=== PATIENT | female | born 1985 | race American Indian/Alaskan Native ===

== ENCOUNTER 2021-05-24 19:23 | Outpatient (CLI) | payer OTHER, MEDICAID ==
[2021-05-24] MEDS ORDERED: LACTATED RINGERS 500 ML IV ONE (19:46)
[2021-05-24 19:56] VITALS: BP 110/74
[2021-05-24 20:40] LABS: Bilirubin,Urine NEG (Negative); Blood,Urine NEG (Negative); Color,Urine Yellow (Yellow); Mucus,Urine 3+ /HPF; Protein,Urine <15 mg/dL mg/dL (Negative); Urobilinogen,Urine < 2.0 mg/dL (<2.0)
== END 2021-05-24 21:04 | disposition home or self-care (01) ==
LOC: TRG 19:23
PROVIDERS: ATTEND Obstetrics & Gynecology
DX: O26.892 Other specified pregnancy related conditions, second trimester (principal); Z3A.24 24 weeks gestation of pregnancy
CPT/HCPCS: 81001

== ENCOUNTER 2021-09-06 11:38 | Inpatient (IN) | payer OTHER, MEDICAID ==
[2021-09-06] MEDS ORDERED: fentaNYL 100 MCG/2 ML INJ IV PRN (12:26)
[2021-09-06] MEDS ORDERED: miSOPROStol 200 MCG TAB PR PRN (12:26)
[2021-09-06] MEDS ORDERED: MINERAL OIL 30 ML ORAL LIQD PO PRN ×2 (12:26→17:07)
[2021-09-06] MEDS ORDERED: TERBUTALINE 1 MG/1 ML INJ SUB-Q PRN (12:26)
[2021-09-06] MEDS ORDERED: OXYTOCIN 10 UNIT/1 ML INJ IM PRN (12:26)
[2021-09-06] MEDS ORDERED: NalbUPHINE 10 MG/1 ML INJ IV PRN (12:26)
[2021-09-06] MEDS ORDERED: BUTORPHANOL 2 MG/1 ML INJ IV PRN (12:26)
[2021-09-06] MEDS ORDERED: ONDANSETRON 4 MG/2 ML INJ IV PRN (12:26)
[2021-09-06] MEDS ORDERED: ePHEDrine SULFATE 50 MG/1 ML INJ IV PRN (12:26)
[2021-09-06] MEDS ORDERED: LOPERAMIDE 2 MG CAP PO PRN (12:26)
[2021-09-06] MEDS ORDERED: METHYLERGONOVINE MALEATE 0.2 MG/ML VIAL IM PRN (12:26)
[2021-09-06] MEDS ORDERED: LIDOCAINE (2%) 20 MG/1 ML VIAL 20 ML MDV INFILTRATI ONE (12:26)
[2021-09-06] MEDS ORDERED: CARBOPROST TROMETHAMINE 250 MCG/1 ML INJ IM PRN (12:26)
[2021-09-06] MEDS ORDERED: OXYTOCIN DRIP 30 UNITS/500 ML BAG IV SCH ×2 (13:00)
[2021-09-06] MEDS ORDERED: DINOPROSTONE 10 MG VAG SUPP VG ONE (14:13)
--- NOTE | 2021-09-06 14:32 | History and Physical Report ---
History of Present Illness Date of examination: 09/06/21 Date of admission: 09/06/2021 Chief complaint: IOL secondary to IVF History of present illness: 35 yo, G0 @ 39 wks, initiated care with [facility] business planner at 22.4 wks gestation as a transfer pt. has been complicated by AMA (co-managed by [facility] specialist), uterine fibroid, migraines, HSV2, polyhydramnios, asthma and hx of hysteroscopy with Myosure resection of two layers. [facility] secondary to [facility]P . Reports + FM. Denies any VB or LOF. Labs: A+, antibody negative; rubella immune; VDRL negative; HBsAg negative; HIV negative; Plts 253; Hep C negative;GC/Chlamydia/Trichomonas negative; 1 hr gtt 103; GBS negative. 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 denies: smoking, alcohol abuse, prescription drug abuse, IV drug use - Obstetrical History Expected Date of Delivery: 09/13/21 Actual Gestation: 39 Week(s) 6 Day(s) : 1 Para: 0 Hx # Term Pregnancies: 0 Number of Pregnancies: 0 Spontaneous Abortions: 0 Induced : 0 Number of Living Children: 0 Medications and Allergies Allergies Allergy/AdvReac Type Severity Reaction Status Date / Time codeine Allergy Itching Verified 09/06/21 12:37 Home Medications Medication Instructions Recorded Confirmed Last Taken Type Ibuprofen [Motrin] 800 mg PO Q8HR PRN #30 tablet 09/10/21 Unknown Rx oxyCODONE /ACETAMINOPHEN [Percocet 1 tab PO Q6HR PRN #30 tablet 09/10/21 Unknown Rx 5/325] Active Meds: Active Medications Butorphanol Tartrate (Butorphanol 2 Mg/1 Ml Inj) 2 mg IV Q2H PRN PRN Reason: Pain , Severe (7-10) Carboprost Tromethamine (Carboprost Tromethamine 250 Mcg/1 Ml Inj) 250 mcg IM ONCE PRN PRN Reason: Uterine Bleeding Ephedrine Sulfate (Ephedrine Sulfate 50 Mg/1 Ml Inj) 10 mg IV Q2M PRN PRN Reason: Hypotension Fentanyl (Fentanyl 100 Mcg/2 Ml Inj) 100 mcg IV Q2H PRN PRN Reason: Pain,Severe (7-10) LABOR PAIN Oxytocin/Sodium Chloride (Pitocin/Ns 30 Unit/500ml) 30 units in 500 mls @ 2 mls/hr IV TITR JOJO; Protocol Lactated Ringer's (Lactated Ringers) 1,000 mls @ 125 mls/hr IV DIRECT JOJO Oxytocin/Sodium Chloride (Pitocin/Ns 30 Unit/500ml) 30 units in 500 mls @ 40 mls/hr IV TITR JOJO; Protocol Loperamide HCl (Loperamide 2 Mg Cap) 2 mg PO ONCE PRN PRN Reason: give with Hemabate Methylergonovine Maleate (Methylergonovine Maleate 0.2 Mg/Ml Vial) 0.2 mg IM ONCE PRN PRN Reason: Uterine Bleeding Mineral Oil (Mineral Oil 30 Ml Oral Liqd) 30 ml PO QHS PRN PRN Reason: Constipation Misoprostol (Misoprostol 200 Mcg Tab) 800 mcg AR ONCE PRN PRN Reason: Uterine Bleeding Nalbuphine HCl (Nalbuphine 10 Mg/1 Ml Inj) 10 mg IV Q2H PRN PRN Reason: Pain, Moderate (4-6) Ondansetron HCl (Ondansetron 4 Mg/2 Ml Inj) 4 mg IV Q8H PRN PRN Reason: Nausea And Vomiting Oxytocin (Oxytocin 10 Unit/1 Ml Inj) 10 unit IM ONCE PRN PRN Reason: Uterine Bleeding Terbutaline Sulfate (Terbutaline 1 Mg/1 Ml Inj) 0.25 mg SUB-Q ONCE PRN PRN Reason: Hyperstimulation/Hypertonicity - Vital Signs Vital signs: Vital Signs Pulse Pulse Ox 106 H 97 09/06/21 11:59 09/06/21 11:59 Temp Pulse Resp BP Pulse Ox 98.4 F 113 H 20 119/66 100 09/06/21 12:13 09/06/21 14:26 09/06/21 12:13 09/06/21 12:13 09/06/21 14:26 - Physical Exam Breasts: Positive: normal Cardiovascular: Regular rate Lungs: Positive: Normal air movement Abdomen: Positive: other (gravid) Uterus: Positive: enlarged (S>D) - Obstetrical FHR: category 1 Uterine Contraction Monitor Mode: External Cervical Dilatation: 1 (per RN) Cervical Effacement Percentage: 30 station: -3 Uterine Contraction Pattern: Absent Uterine Tone Measurement Phase: Resting Results Result Diagrams: 09/08/21 22:54 All other labs normal. Assessment and Plan - Patient Problems (1) resulting from in vitro fertilization Status: Acute Qualifiers: Trimester: third trimester Qualified Code(s): O09.813 - Supervision of resulting from assisted reproductive technology, third trimester Plan to address problem: IOL via cervidil as tolerated Pain meds as desired per orders Monitor maternal/ wellbeing closely (2) Advanced maternal age (AMA) in Status: Acute (3) Polyhydramnios affecting in third trimester Status: Acute (4) HSV-2 seropositive Status: Acute (5) Uterine fibroid during , antepartum Status: Acute
[2021-09-06 14:34] LABS: Hematocrit 36.5 % (30.3-42.9); Hemoglobin 11.9 gm/dl (10.1-14.3); Mean Corpuscular HGB Conc 33 % (30-34); Mean Corpuscular Volume 92 fl (79-97); Platelet Count 192 K/mm3 (140-440); Red Blood Count 3.95 M/mm3 (3.65-5.03); Red Cell Distribution Width 14.8 % (13.2-15.2)
[2021-09-06] MEDS: LACTATED RINGERS 1,000 ML IV SCH (15:59)
[2021-09-06] MEDS ORDERED: ALUM-MAG HYDROXIDE-SIMETHICONE 200-200-20MG/5ML ORAL LIQD 30 ML PO PRN (23:51)
--- NOTE | 2021-09-07 08:56 | Progress Note ---
Assessment and Plan A: IUP at 39w1d Asthma AMA Genital Herpes Fibroid Uterus IVF Migraines Polyhydramnios Genital Herpes without lesion or prodrome P: Continue routine intrapartum care Continue cervical ripening Subjective - Subjective Date of service: 09/07/21 Principal diagnosis: IUP at 39 wks, AMA, IVF pregancy Interval history: Pt uncomfortable with contractions. Otherwise no complaints. Patient reports: new complaints, movement normal, contractions, no loss of fluid, no vaginal bleeding Objective - Vital Signs Vital Signs: Vital Signs - 12hr 09/06/21 09/06/21 09/06/21 20:57 21:02 21:07 Temperature Pulse Rate 102 H 99 H 107 H Respiratory Rate Blood Pressure O2 Sat by Pulse 100 100 99 Oximetry O2 Sat by Pulse Oximetry [ Anterior Bilateral Throughout] 09/06/21 09/06/21 09/06/21 21:16 22:39 22:44 Temperature Pulse Rate 103 H 89 107 H Respiratory Rate Blood Pressure O2 Sat by Pulse 99 99 99 Oximetry O2 Sat by Pulse Oximetry [ Anterior Bilateral Throughout] 09/06/21 09/06/21 09/06/21 22:49 22:54 22:59 Temperature Pulse Rate 96 H 81 85 Respiratory Rate Blood Pressure O2 Sat by Pulse 98 98 98 Oximetry O2 Sat by Pulse Oximetry [ Anterior Bilateral Throughout] 09/06/21 09/06/21 09/06/21 23:04 23:09 23:14 Temperature Pulse Rate 105 H 87 90 Respiratory Rate Blood Pressure O2 Sat by Pulse 97 97 97 Oximetry O2 Sat by Pulse Oximetry [ Anterior Bilateral Throughout] 09/06/21 09/06/21 09/06/21 23:19 23:24 23:29 Temperature Pulse Rate 100 H 93 H 84 Respiratory Rate Blood Pressure O2 Sat by Pulse 96 97 96 Oximetry O2 Sat by Pulse Oximetry [ Anterior Bilateral Throughout] 09/06/21 09/06/21 09/06/21 23:34 23:39 23:44 Temperature Pulse Rate 87 89 83 Respiratory Rate Blood Pressure O2 Sat by Pulse 98 97 97 Oximetry O2 Sat by Pulse Oximetry [ Anterior Bilateral Throughout] 09/06/21 09/06/21 09/06/21 23:49 23:54 23:59 Temperature Pulse Rate 110 H 87 105 H Respiratory Rate Blood Pressure O2 Sat by Pulse 97 97 97 Oximetry O2 Sat by Pulse Oximetry [ Anterior Bilateral Throughout] 09/07/21 09/07/21 09/07/21 00:04 00:09 00:14 Temperature Pulse Rate 91 H 91 H 84 Respiratory Rate Blood Pressure O2 Sat by Pulse 98 97 99 Oximetry O2 Sat by Pulse Oximetry [ Anterior Bilateral Throughout] 09/07/21 09/07/21 09/07/21 00:19 00:24 00:29 Temperature Pulse Rate 88 87 87 Respiratory Rate Blood Pressure O2 Sat by Pulse 98 97 97 Oximetry O2 Sat by Pulse Oximetry [ Anterior Bilateral Throughout] 09/07/21 09/07/21 09/07/21 00:34 00:39 00:44 Temperature Pulse Rate 86 85 86 Respiratory Rate Blood Pressure O2 Sat by Pulse 97 97 97 Oximetry O2 Sat by Pulse Oximetry [ Anterior Bilateral Throughout] 09/07/21 09/07/21 09/07/21 00:49 00:54 00:59 Temperature Pulse Rate 88 85 95 H Respiratory Rate Blood Pressure O2 Sat by Pulse 97 97 95 Oximetry O2 Sat by Pulse Oximetry [ Anterior Bilateral Throughout] 09/07/21 09/07/21 09/07/21 01:04 01:09 01:14 Temperature Pulse Rate 91 H 86 88 Respiratory Rate Blood Pressure O2 Sat by Pulse 98 99 97 Oximetry O2 Sat by Pulse Oximetry [ Anterior Bilateral Throughout] 09/07/21 09/07/21 09/07/21 01:19 01:24 01:29 Temperature Pulse Rate 85 90 95 H Respiratory Rate Blood Pressure O2 Sat by Pulse 97 97 98 Oximetry O2 Sat by Pulse Oximetry [ Anterior Bilateral Throughout] 09/07/21 09/07/21 09/07/21 01:34 01:39 01:44 Temperature Pulse Rate 82 89 89 Respiratory Rate Blood Pressure O2 Sat by Pulse 98 98 97 Oximetry O2 Sat by Pulse Oximetry [ Anterior Bilateral Throughout] 09/07/21 09/07/21 09/07/21 01:49 01:54 01:59 Temperature Pulse Rate 86 91 H 89 Respiratory Rate Blood Pressure O2 Sat by Pulse 97 96 96 Oximetry O2 Sat by Pulse Oximetry [ Anterior Bilateral Throughout] 09/07/21 09/07/21 09/07/21 02:04 02:09 02:14 Temperature Pulse Rate 90 86 94 H Respiratory Rate Blood Pressure O2 Sat by Pulse 95 97 97 Oximetry O2 Sat by Pulse Oximetry [ Anterior Bilateral Throughout] 09/07/21 09/07/21 09/07/21 02:19 02:24 02:35 Temperature Pulse Rate 89 89 98 H Respiratory Rate Blood Pressure O2 Sat by Pulse 97 97 94 Oximetry O2 Sat by Pulse Oximetry [ Anterior Bilateral Throughout] 09/07/21 09/07/21 09/07/21 02:40 02:45 02:50 Temperature Pulse Rate 91 H 102 H 88 Respiratory Rate Blood Pressure O2 Sat by Pulse 99 99 98 Oximetry O2 Sat by Pulse Oximetry [ Anterior Bilateral Throughout] 09/07/21 09/07/21 09/07/21 02:55 03:00 03:05 Temperature Pulse Rate 90 92 H 87 Respiratory Rate Blood Pressure O2 Sat by Pulse 97 99 98 Oximetry O2 Sat by Pulse Oximetry [ Anterior Bilateral Throughout] 09/07/21 09/07/21 09/07/21 03:10 03:15 03:20 Temperature Pulse Rate 93 H 102 H 97 H Respiratory Rate Blood Pressure O2 Sat by Pulse 98 99 99 Oximetry O2 Sat by Pulse Oximetry [ Anterior Bilateral Throughout] 09/07/21 09/07/21 09/07/21 03:25 03:30 03:35 Temperature Pulse Rate 92 H 89 82 Respiratory Rate Blood Pressure O2 Sat by Pulse 99 99 98 Oximetry O2 Sat by Pulse Oximetry [ Anterior Bilateral Throughout] 09/07/21 09/07/21 09/07/21 03:40 03:45 03:50 Temperature Pulse Rate 95 H 94 H 100 H Respiratory Rate Blood Pressure O2 Sat by Pulse 99 99 98 Oximetry O2 Sat by Pulse Oximetry [ Anterior Bilateral Throughout] 09/07/21 09/07/21 09/07/21 03:55 04:00 07:13 Temperature Pulse Rate 104 H 99 H 62 Respiratory Rate Blood Pressure O2 Sat by Pulse 97 99 87 Oximetry O2 Sat by Pulse Oximetry [ Anterior Bilateral Throughout] 09/07/21 09/07/21 09/07/21 07:16 07:18 07:23 Temperature Pulse Rate 86 94 H 93 H Respiratory Rate Blood Pressure 111/78 O2 Sat by Pulse 100 99 Oximetry O2 Sat by Pulse Oximetry [ Anterior Bilateral Throughout] 09/07/21 09/07/21 09/07/21 07:28 07:33 07:38 Temperature 97.8 F Pulse Rate 88 88 95 H Respiratory 20 Rate Blood Pressure O2 Sat by Pulse 97 97 98 Oximetry O2 Sat by Pulse 98 Oximetry [ Anterior Bilateral Throughout] 09/07/21 09/07/21 09/07/21 07:43 07:44 07:48 Temperature Pulse Rate 83 90 78 Respiratory Rate Blood Pressure 101/57 O2 Sat by Pulse 99 97 Oximetry O2 Sat by Pulse Oximetry [ Anterior Bilateral Throughout] 09/07/21 09/07/21 09/07/21 07:53 07:58 08:00 Temperature Pulse Rate 105 H 80 85 Respiratory Rate Blood Pressure 103/64 O2 Sat by Pulse 99 100 Oximetry O2 Sat by Pulse Oximetry [ Anterior Bilateral Throughout] 09/07/21 09/07/21 09/07/21 08:03 08:08 08:13 Temperature Pulse Rate 89 77 80 Respiratory Rate Blood Pressure O2 Sat by Pulse 98 98 98 Oximetry O2 Sat by Pulse Oximetry [ Anterior Bilateral Throughout] 09/07/21 09/07/21 09/07/21 08:14 08:18 08:23 Temperature Pulse Rate 83 77 87 Respiratory Rate Blood Pressure 99/63 O2 Sat by Pulse 98 98 Oximetry O2 Sat by Pulse Oximetry [ Anterior Bilateral Throughout] 09/07/21 09/07/21 09/07/21 08:28 08:29 08:33 Temperature Pulse Rate 82 86 79 Respiratory Rate Blood Pressure 105/56 O2 Sat by Pulse 98 98 Oximetry O2 Sat by Pulse Oximetry [ Anterior Bilateral Throughout] 09/07/21 09/07/21 09/07/21 08:38 08:43 08:46 Temperature Pulse Rate 83 108 H 86 Respiratory Rate Blood Pressure 110/62 O2 Sat by Pulse 97 99 Oximetry O2 Sat by Pulse Oximetry [ Anterior Bilateral Throughout] 09/07/21 08:48 Temperature Pulse Rate 92 H Respiratory Rate Blood Pressure O2 Sat by Pulse 100 Oximetry O2 Sat by Pulse Oximetry [ Anterior Bilateral Throughout] - Exam Breasts: deferred Abdomen: Present: soft (gravid ) Uterus: Present: normal (gravid ) FHR: auscultation normal Uterine Contraction Monitor Mode: External Cervical Dilatation: 2 Cervical Effacement Percentage: 50 station: -3 - Labs Labs: Laboratory Results - last 24 hr 09/06/21 09/06/21 09/06/21 12:26 13:20 14:54 WBC 8.7 RBC 3.95 Hgb 11.9 Hct 36.5 MCV 92 MCH 30 MCHC 33 RDW 14.8 Plt Count 192 Syphilis IgG/IgM Ab SARS-CoV-2 (PCR) Negative Blood Type A POSITIVE Antibody Screen Negative 09/06/21 Unknown WBC RBC Hgb Hct MCV MCH MCHC RDW Plt Count Syphilis IgG/IgM Ab Nonreactive SARS-CoV-2 (PCR) Blood Type Antibody Screen
[2021-09-07] MEDS: miSOPROStol 25 MCG TAB PO SCH ×4 (10:24→23:15)
[2021-09-07] MEDS ORDERED: BUTORPHANOL 2 MG/1 ML INJ IV PRN (14:06)
[2021-09-07] MEDS ORDERED: fentaNYL 100 MCG/2 ML INJ IV PRN (14:06)
[2021-09-07] MEDS ORDERED: ACETAMINOPHEN 325 MG TAB PO PRN (14:06)
[2021-09-07] MEDS ORDERED: NALOXONE 0.4 MG/1 ML INJ IV PRN (14:06)
[2021-09-07] MEDS ORDERED: LACTATED RINGERS 1,000 ML IV SCH (14:15)
[2021-09-07] MEDS ORDERED: miSOPROStol 25 MCG TAB PO SCH (23:30)
[2021-09-08] MEDS: LACTATED RINGERS 1,000 ML IV SCH (08:40)
--- NOTE | 2021-09-08 09:00 | Progress Note ---
Assessment and Plan - Patient Problems (1) Advanced maternal age (AMA) in Current Visit: Yes Status: Acute Plan to address problem: Will proceed with a primary delivery (2) Polyhydramnios affecting in third trimester Current Visit: Yes Status: Acute Subjective - Subjective Date of service: 09/08/21 Principal diagnosis: IUP at 39 wks, AMA, IVF pregancy Interval history: 35-year-old at 39+2 weeks admitted for induction of labor secondary to polyhydramnios and uterine fibroids. The patient has been undergoing induction without significant change in her cervical status. She is status post use of Cervidil, Pitocin, and Cytotec. The patient has expressed her desire to abort the induction and to proceed with a primary delivery. The risk and benefits of the procedure were discussed with the patient and she has agreed to proceed. Patient reports: new complaints, movement normal, contractions, no loss of fluid, no vaginal bleeding Objective - Vital Signs Vital Signs: Vital Signs - 12hr 09/07/21 09/07/21 09/07/21 21:03 21:08 21:13 Temperature Pulse Rate 101 H 103 H 96 H Respiratory Rate Blood Pressure O2 Sat by Pulse 97 98 97 Oximetry 09/07/21 09/07/21 09/07/21 21:18 21:23 21:28 Temperature Pulse Rate 111 H 98 H 92 H Respiratory Rate Blood Pressure O2 Sat by Pulse 95 97 97 Oximetry 09/07/21 09/07/21 09/07/21 21:31 21:33 21:38 Temperature Pulse Rate 99 H 97 H 106 H Respiratory Rate Blood Pressure 102/63 O2 Sat by Pulse 97 97 Oximetry 09/07/21 09/07/21 09/07/21 21:43 21:48 21:53 Temperature Pulse Rate 94 H 87 84 Respiratory Rate Blood Pressure O2 Sat by Pulse 98 97 98 Oximetry 09/07/21 09/07/21 09/07/21 21:58 22:03 22:08 Temperature Pulse Rate 91 H 92 H 93 H Respiratory Rate Blood Pressure O2 Sat by Pulse 99 99 98 Oximetry 09/07/21 09/07/21 09/07/21 22:13 22:18 22:23 Temperature Pulse Rate 84 81 81 Respiratory Rate Blood Pressure O2 Sat by Pulse 98 99 98 Oximetry 09/07/21 09/07/21 09/07/21 22:28 22:33 22:38 Temperature Pulse Rate 89 89 88 Respiratory Rate Blood Pressure O2 Sat by Pulse 98 100 98 Oximetry 09/07/21 09/07/21 09/07/21 22:43 22:48 22:53 Temperature Pulse Rate 84 89 81 Respiratory Rate Blood Pressure O2 Sat by Pulse 98 98 98 Oximetry 09/07/21 09/07/21 09/07/21 22:58 23:05 23:13 Temperature Pulse Rate 82 49 L 88 Respiratory Rate Blood Pressure O2 Sat by Pulse 97 49 L 99 Oximetry 09/07/21 09/07/21 09/07/21 23:17 23:18 23:23 Temperature Pulse Rate 76 86 83 Respiratory Rate Blood Pressure 105/60 O2 Sat by Pulse 99 98 Oximetry 09/07/21 09/07/21 09/07/21 23:25 23:28 23:33 Temperature 97.8 F Pulse Rate 80 82 Respiratory 18 Rate Blood Pressure O2 Sat by Pulse 100 99 99 Oximetry 09/07/21 09/07/21 09/07/21 23:38 23:43 23:48 Temperature Pulse Rate 79 79 80 Respiratory Rate Blood Pressure O2 Sat by Pulse 98 98 96 Oximetry 09/07/21 09/07/21 09/08/21 23:53 23:58 00:03 Temperature Pulse Rate 54 L 87 76 Respiratory Rate Blood Pressure O2 Sat by Pulse 98 98 98 Oximetry 09/08/21 09/08/21 09/08/21 00:08 00:13 00:18 Temperature Pulse Rate 145 H 142 H 138 H Respiratory Rate Blood Pressure O2 Sat by Pulse 98 98 98 Oximetry 09/08/21 09/08/21 09/08/21 00:23 00:28 00:33 Temperature Pulse Rate 132 H 136 H 147 H Respiratory Rate Blood Pressure O2 Sat by Pulse 97 97 98 Oximetry 09/08/21 09/08/21 09/08/21 00:38 00:43 01:16 Temperature Pulse Rate 141 H 140 H 85 Respiratory Rate Blood Pressure O2 Sat by Pulse 97 98 99 Oximetry 09/08/21 09/08/21 09/08/21 01:21 01:26 01:31 Temperature Pulse Rate 93 H 87 83 Respiratory Rate Blood Pressure O2 Sat by Pulse 98 98 97 Oximetry 09/08/21 09/08/21 09/08/21 01:40 01:44 01:45 Temperature Pulse Rate 28 L 85 84 Respiratory Rate Blood Pressure 110/71 O2 Sat by Pulse 96 100 Oximetry 09/08/21 09/08/21 09/08/21 01:50 01:55 02:00 Temperature Pulse Rate 78 84 75 Respiratory Rate Blood Pressure O2 Sat by Pulse 98 98 99 Oximetry 09/08/21 09/08/21 09/08/21 02:05 02:10 02:15 Temperature Pulse Rate 86 85 84 Respiratory Rate Blood Pressure O2 Sat by Pulse 98 98 99 Oximetry 09/08/21 09/08/21 09/08/21 02:20 02:25 02:30 Temperature Pulse Rate 83 98 H 94 H Respiratory Rate Blood Pressure O2 Sat by Pulse 99 100 100 Oximetry 09/08/21 09/08/21 09/08/21 02:35 02:41 02:46 Temperature Pulse Rate 83 78 89 Respiratory Rate Blood Pressure O2 Sat by Pulse 99 100 99 Oximetry 09/08/21 09/08/21 09/08/21 02:51 02:56 03:01 Temperature Pulse Rate 91 H 84 91 H Respiratory Rate Blood Pressure O2 Sat by Pulse 99 99 99 Oximetry 09/08/21 09/08/21 09/08/21 03:06 03:11 03:16 Temperature Pulse Rate 89 82 102 H Respiratory Rate Blood Pressure O2 Sat by Pulse 99 99 98 Oximetry 09/08/21 09/08/21 09/08/21 03:21 03:26 03:30 Temperature 97.9 F Pulse Rate 76 88 Respiratory 18 Rate Blood Pressure O2 Sat by Pulse 99 100 99 Oximetry 09/08/21 09/08/21 09/08/21 03:31 03:36 03:41 Temperature Pulse Rate 78 92 H 87 Respiratory Rate Blood Pressure 114/56 O2 Sat by Pulse 99 99 100 Oximetry 09/08/21 09/08/21 09/08/21 03:46 03:51 03:56 Temperature Pulse Rate 101 H 91 H 80 Respiratory Rate Blood Pressure O2 Sat by Pulse 99 99 99 Oximetry 09/08/21 09/08/21 09/08/21 04:01 04:06 04:11 Temperature Pulse Rate 87 96 H 89 Respiratory Rate Blood Pressure O2 Sat by Pulse 99 99 100 Oximetry 09/08/21 09/08/21 09/08/21 04:16 04:21 04:26 Temperature Pulse Rate 85 86 83 Respiratory Rate Blood Pressure O2 Sat by Pulse 99 99 99 Oximetry 09/08/21 09/08/21 09/08/21 04:31 04:36 04:41 Temperature Pulse Rate 83 83 85 Respiratory Rate Blood Pressure O2 Sat by Pulse 99 99 99 Oximetry 09/08/21 09/08/21 09/08/21 04:59 05:04 05:09 Temperature Pulse Rate 89 95 H 81 Respiratory Rate Blood Pressure O2 Sat by Pulse 98 97 97 Oximetry 09/08/21 09/08/21 09/08/21 05:14 05:19 05:24 Temperature Pulse Rate 84 87 84 Respiratory Rate Blood Pressure O2 Sat by Pulse 97 97 97 Oximetry 09/08/21 09/08/21 09/08/21 05:29 05:34 05:39 Temperature Pulse Rate 82 85 87 Respiratory Rate Blood Pressure O2 Sat by Pulse 97 97 98 Oximetry 09/08/21 09/08/21 09/08/21 05:44 05:49 05:54 Temperature Pulse Rate 83 87 86 Respiratory Rate Blood Pressure O2 Sat by Pulse 97 97 97 Oximetry 09/08/21 09/08/21 09/08/21 05:59 06:04 06:09 Temperature Pulse Rate 92 H 83 89 Respiratory Rate Blood Pressure O2 Sat by Pulse 98 97 97 Oximetry 09/08/21 09/08/21 09/08/21 06:14 06:19 06:24 Temperature Pulse Rate 78 93 H 84 Respiratory Rate Blood Pressure O2 Sat by Pulse 98 98 96 Oximetry 09/08/21 09/08/21 06:29 06:34 Temperature Pulse Rate 89 105 H Respiratory Rate Blood Pressure O2 Sat by Pulse 97 98 Oximetry
[2021-09-08] MEDS ORDERED: miSOPROStol 200 MCG TAB ONE (09:28)
[2021-09-08] MEDS ORDERED: CARBOPROST TROMETHAMINE 250 MCG/1 ML INJ IM ONE (09:28)
[2021-09-08] MEDS ORDERED: METHYLERGONOVINE MALEATE 0.2 MG/ML VIAL IM ONE (09:28)
[2021-09-08] MEDS ORDERED: METOCLOPRAMIDE 10 MG/2 ML INJ IV SCH (09:30)
[2021-09-08] MEDS ORDERED: FAMOTIDINE 20 MG/2 ML INJ IV SCH (09:30)
[2021-09-08] MEDS ORDERED: BICITRA ORAL LIQD 30ML PO SCH (09:30)
[2021-09-08] MEDS ORDERED: ceFAZolin/STERILE WATER 2 GM/20 ML SYRINGE IV NR (09:30)
--- NOTE | 2021-09-08 09:53 | Procedure Note ---
OB Delivery Note - Delivery Date of Delivery: 09/08/21 Surgeon: LINDA FAY Estimated blood loss: other (qbl 445ml) - Section Preop diagnosis: other (Failed induction) Postop diagnosis: same section procedure: section, primary low transverse Disposition: PACU Complications: none - A at 1 minute: 7 at 5 minutes: 9 Infant Gender: Female (Weight 8 pounds 0 ounces)
--- NOTE | 2021-09-08 09:54 | Operative Report ---
Operative Report Operative Report: Date of surgery: September 08, 2021 Preoperative diagnosis: at 39+2 weeks; failed induction of labor Postoperative diagnosis: Same as above Procedure: Primary low transverse delivery Surgeon: Hilaria Ho M.D. Anesthesia: Regional Estimated blood loss:qbl 445ml IV fluids: 2800 mL Urine output: 200 mL Findings: Liveborn female with Apgars of 7 and 9 weight 8 pounds 0 ounces Indications: 35-year-old at 39+2 weeks who presents for induction of labor secondary to polyhydramnios and history of uterine fibroids. The patient's intrapartum course was complicated by the use of multiple induction modalities without significant change in her cervix. The patient elected to undergo a primary delivery and aborted her induction of labor. Procedure: The patient was taken to the operating room and given regional anesthesia without complication. She was prepped and draped in a normal sterile fashion. A Pfannenstiel skin incision was made down to layer the fascia which was nicked in the midline extended laterally with the Bovie cautery. The superior aspect of the rectus fascia was grasped with Branch clamps x2 and the rectus muscles off sharply. This was done in inferior fashion as well. The rectus muscle midline and peritoneum entered bluntly. An Mohit retractor was then inserted. A bladder blade was placed. The vesicouterine peritoneum was then entered sharply with Metzenbaum scissors. A bladder flap was created digitally. A low transverse uterine incision was then made and extended digitally. There was clear fluid upon entry into the uterine cavity. A Kiwi vacuum was applied to the head for delivery. The head was delivered through the incision with fundal pressure. The cord was clamped and cut x2 and was passed off to pediatrics. The placenta was then manually extracted. The uterus was then exteriorized and cleared of clots and debris. The uterine incision was then closed in a running locked fashion with 0 Vicryl additional imbricating stitch was applied for 2 layer closure. The posterior cul-de-sac was then copiously irrigated. The uterus was replaced back into the abdomen and pelvis were the gutters were then irrigated. The Mohit retractor was then removed. The peritoneum was then reapproximated with 3-0 Vicryl incorporating the rectus muscle. The fascia was then closed with 0 Vicryl in a running fashion. The skin was then reapproximated with 3-0 Monocryl on a Donell needle subcuticular fashion. Steri-Strips to place across the incision and a Crede procedures performed at the end of the surgery. A pressure dressing was applied to the incision. The surgery productive of a liveborn female with Apgars of 7 and 9 weight 8 pounds 0 ounces. The patient was taken to the recovery room in stable condition. All sponge laps and needle counts correct x2.
[2021-09-08] MEDS ORDERED: ONDANSETRON 4 MG/2 ML INJ ONE (09:55)
[2021-09-08] MEDS ORDERED: OXYTOCIN DRIP 30 UNITS/500 ML BAG IV SCH ×2 (10:00→11:00)
[2021-09-08] MEDS ORDERED: PHENYLEPHRINE/NS 1,000 MCG/10 ML SYRINGE (OR USE) IV ONE ×2 (10:25→10:49)
[2021-09-08] MEDS ORDERED: LACTATED RINGERS 1,000 ML ONE (10:45)
[2021-09-08] MEDS ORDERED: KETOROLAC 30 MG/1 ML INJ IV PRN (11:00)
[2021-09-08] MEDS ORDERED: MORPHINE 4 MG/1 ML INJ IV PRN (11:00)
[2021-09-08] MEDS ORDERED: ACETAMINOPHEN 325 MG TAB PO PRN (11:00)
[2021-09-08] MEDS ORDERED: LANOLIN/ZINC/DIMETHICONE (LANSINOH) 7 GM TP PRN (11:00)
[2021-09-08] MEDS ORDERED: SIMETHICONE 80 MG CHEW TAB PO PRN (11:00)
[2021-09-08] MEDS ORDERED: WITCH HAZEL/ GLYCERIN PAD TP PRN (11:00)
[2021-09-08] MEDS ORDERED: D5W/LACTATED RINGERS 1,000 ML IV SCH (11:00)
[2021-09-08] MEDS ORDERED: NALOXONE 0.4 MG/1 ML INJ IV PRN (11:00)
[2021-09-08] MEDS ORDERED: dexAMETHasone 20 MG/5 ML VIAL ONE (11:16)
[2021-09-08] MEDS ORDERED: BUPIVACAINE/PF (0.25%) 2.5 MG/ML 30 ML VIAL INFILTRATI ONE (11:16)
--- NOTE | 2021-09-08 11:35 | Anesthesia Day of Surgery ---
Anesthesia Day of Surgery - Day of Surgery Patient Examined: Yes Patient H&P Reviewed: Yes Patient is NPO: Yes
--- NOTE | 2021-09-08 11:45 | Anesthesia Consultation ---
Anesthesia Consult and Med Hx Date of service: 09/08/21 - Airway Anesthetic Teeth Evaluation: Poor ROM Head & Neck: Adequate Mental/Hyoid Distance: Adequate Mallampati Class: Class II Intubation Access Assessment: Probably Good - Pulmonary Exam CTA: Yes - Cardiac Exam Cardiac Exam: RRR - Pre-Operative Health Status ASA Pre-Surgery Classification: ASA2 Proposed Anesthetic Plan: Spinal - Pulmonary Hx Asthma: Yes COPD: No Hx Pneumonia: No - Cardiovascular System Hx Hypertension: No - Central Nervous System Hx Seizures: No Hx Psychiatric Problems: No - Endocrine Hx Renal Disease: No Hx End Stage Renal Disease: No Hx Hypothyroidism: No Hx Hyperthyroidism: No - Hematic Hx Anemia: No Hx Sickle Cell Disease: No - Other Systems Hx Alcohol Use: Yes Hx Substance Use: No Hx Obesity: Yes
--- NOTE | 2021-09-08 11:46 | Progress Note ---
Spinal Anesthesia Block - Spinal Anesthesia Block Start Time: 10:07 Stop Time: 10:10 Performed by:: LAWSON DAWKINS Procedure: Patient IDed, H&P reviewed, all questions and concerns were answered, and consent was signed. Timeout was performed at bedside. Patient in sitting position. Sterile prep and drape was performed. [3] ml of 1% lidocaine skin wheal at L[3]- L [4]. Needle introducer advanced. 25 gauge spinal needle advanced. Clear, free flowing CSF. negative blood, negative paresthesia. Spinal dose given. All needles removed. Patient tolerated procedure.
--- NOTE | 2021-09-08 11:49 | Progress Note ---
Regional Anesthesia Block - Regional Anesthesia Block Start Time: 11:12 Stop Time: 11:14 Performed By:: LAWSON DAWKINS Procedure: Patient consented for TAP block for post surgical pain management. Patient identified, monitors placed, and time out performed. TAP identified bilaterally via ultrasound. Skin prepped bilaterally with [chlorhexidine] and [22g stimuplex] needle advanced to the TAP. [Marcaine 0.25% 30ml, Decadron 5mg] injected under ultrasound guidance on the [left] side. [Marcaine 0.25% 30ml, Decadron 5mg] injected under ultrasound guidance on the [right] side. Negative aspiration every 5mL, No change in heart rate or rhythm. Patient tolerated the procedure well. No apparent complications seen.
[2021-09-08] MEDS: oxyCODONE /ACETAMINOPHEN 5-325MG TAB PO PRN ×3 (16:17→23:56)
[2021-09-08] MEDS ORDERED: MAGNESIUM HYDROXIDE (MOM) ORAL LIQD UDC PO PRN (22:00)
[2021-09-08 23:52] LABS: Hematocrit 35.6 % (30.3-42.9); Hemoglobin 11.9 gm/dl (10.1-14.3)
[2021-09-09] MEDS: oxyCODONE /ACETAMINOPHEN 5-325MG TAB PO PRN ×4 (04:35→18:28)
[2021-09-09] MEDS: IBUPROFEN 600 MG TAB PO PRN (06:30)
--- NOTE | 2021-09-09 08:23 | Progress Note ---
Assessment and Plan - Patient Problems (1) Advanced maternal age (AMA) in Current Visit: Yes Status: Acute Plan to address problem: Patient doing well Routine postoperative care (2) Polyhydramnios affecting in third trimester Current Visit: Yes Status: Acute Subjective - Subjective Date of service: 09/09/21 Principal diagnosis: IUP at 39 wks, AMA, IVF pregancy Interval history: The patient is without any significant complaints. She reports passing flatus and has tolerated a regular diet. The patient has been able to void. Patient reports: appetite normal, voiding normally, pain well controlled : doing well Objective - Vital Signs Latest vital signs: Vital Signs Temp Pulse Resp BP BP Pulse Ox Pulse Ox 09/09/21 04:39 98.2 F 81 20 102/64 99 09/09/21 01:23 97.9 F 09/08/21 23:41 97.4 F L 61 20 125/80 99 09/08/21 20:55 98 09/08/21 16:53 98.1 F 67 20 132/83 93 09/08/21 14:06 97.5 F L 62 20 119/67 98 09/08/21 13:30 98 09/08/21 13:19 97.6 F 09/08/21 12:32 97.0 F L 09/08/21 12:20 69 17 109/68 98 09/08/21 12:15 76 23 106/71 99 09/08/21 12:00 61 19 100/61 99 09/08/21 11:45 61 21 103/64 100 09/08/21 11:30 73 31 H 96/56 99 09/08/21 11:25 79 26 H 86/48 98 09/08/21 11:20 82 23 91/51 96 09/08/21 11:18 97.5 F L Intake and Output 09/08/21 09/09/21 09/09/21 22:59 06:59 14:59 Intake Total 360 Output Total 2150 200 Balance -1789 - Intake: Oral 360 Output: Urine 2149 200 Indwelling Catheter 2049 Void 100 200 Other: Total, Intake Amount 360 Total, Output Amount 750 200 # Voids Void 1 1 - Exam Incision: Present: dressed
--- NOTE | 2021-09-09 11:45 | Post Anesthesia Evaluation ---
- Post Anesthesia Evaluation Patient Participated: Yes Airway Patent: Yes Stable Respiratory Function: Yes Nausea/Vomiting: No Temp > 96.8F: Yes Pain Manageable: Yes Adequeate Hydration: Yes Anesthesia Complications: No Block Receding Appropriately: Yes Patient on Ventilator: No
--- NOTE | 2021-09-09 21:29 | Electrocardiograph Report ---
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
[2021-09-10] MEDS: oxyCODONE /ACETAMINOPHEN 5-325MG TAB PO PRN ×3 (00:58→09:58)
--- NOTE | 2021-09-10 07:59 | Progress Note ---
Assessment and Plan A: POD#2 s/p primary at term Asthma AMA Genital Herpes Fibroid Uterus IVF Migraines Genital Herpes without lesion or prodrome P: Routine postop care Anticipate discharge later today Subjective - Subjective Date of service: 09/10/21 Principal diagnosis: POD#2 s/p primary at term Interval history: Pt without complaints. Plus flatus. Voiding without difficulty. Minimal lochia. No bowel movement yet. Patient reports: appetite normal, voiding normally, pain well controlled, flatus, ambulating normally, no bowel movement : doing well Objective - Vital Signs Latest vital signs: Vital Signs Temp Pulse Resp BP BP Pulse Ox Pulse Ox 09/10/21 05:45 20 09/10/21 01:20 97.8 F 66 20 122/84 98 09/10/21 00:58 18 09/09/21 19:55 99 09/09/21 16:13 97.8 F 76 20 127/71 100 09/09/21 08:56 98.7 F 62 18 127/78 100 09/09/21 08:00 98 Intake and Output 09/09/21 09/10/21 09/10/21 22:59 06:59 14:59 Intake Total 780 360 Balance 780 360 Intake: Oral 420 240 Intake, Free Water 360 120 Other: Total, Intake Amount 420 240 # Voids Void 1 1 - Exam Breasts: Present: deferred Abdomen: Present: soft (obese), distention (mild) Uterus: Present: fundal height at umbilicus Extremities: Present: edema (trace) Incision: Present: dressed
[2021-09-10] MEDS ORDERED: LACTULOSE 20 GM/30 ML ORAL LIQD PO SCH (08:00)
--- NOTE | 2021-09-10 08:04 | Discharge Summary ---
Providers - Providers Date of Admission: 09/07/21 14:06 Date of discharge: 09/10/21 Attending physician: LINDA FAY Primary care physician: LINDA FAY Hospitalization Reason for admission: induction of labor Delivery: Procedure: section, primary low transverse Procedure details: Please see operative report Episiotomy: none Laceration: none Incision: intact complications: none Discharge diagnosis: IUP at term delivered baby: female Hospital course: Patient was admitted for induction of labor secondary to IVF and advanced maternal age. She ultimately underwent a primary section which he tolerated well. Her postoperative course was uncomplicated and she met discharge criteria on postoperative day #2. She will follow-up in the office in 2 weeks for an incision check with Dr. Bermudez. Condition at discharge: Stable Disposition: 01 HOME / SELF CARE / HOMELESS - Discharge Diagnoses (1) Term of female Status: Acute (2) Advanced maternal age (AMA) in Status: Acute (3) HSV-2 seropositive Status: Acute (4) resulting from in vitro fertilization Status: Acute Qualifiers: Trimester: third trimester Qualified Code(s): O09.813 - Supervision of resulting from assisted reproductive technology, third trimester (5) Uterine fibroid during , antepartum Status: Acute Plan - Discharge Medications Prescriptions: Ibuprofen [Motrin] 800 mg PO Q8HR PRN #30 tablet PRN Reason: Pain, Moderate (4-6) oxyCODONE /ACETAMINOPHEN [Percocet 5/325] 1 tab PO Q6HR PRN #30 tablet PRN Reason: Pain - Provider Discharge Summary Activity: routine, no sex for 6 weeks, no heavy lifting 4 weeks, no strenuous exercise Diet: routine Instructions: routine Additional instructions: [] Smoking cessation referral if applicable(refer to patient education folder for contact #) [] Refer to [facility] Booklet Call your doctor immediately for: * Fever > 100.5 * Heavy vaginal bleeding ( >1 pad per hour) * Severe persistent headache * Shortness of breath * Reddened, hot, painful area to leg or breast * Drainage or odor from incision. * Keep incision clean and dry at all times and follow doctor's instructions regarding bathing/showering - Follow up plan Follow up: BUCK BERMUDEZ MD [Staff Physician] - 14 Days (Please call to schedule incision check)
[2021-09-10] MEDS: IBUPROFEN 600 MG TAB PO PRN (08:38)
[2021-09-10 13:30] VITALS: BP 136/80
== END 2021-09-10 13:45 | disposition home or self-care (01) | DRG 787 ==
LOC: TRG 11:38 → LD 11:39 → UNDOADMIN 12:26 → TRG 17:43 → LD 09-07 14:06 → APU 09-08 10:13 → OB 09-08 13:31
PROVIDERS: ADMIT Obstetrics & Gynecology; ATTEND Obstetrics & Gynecology
PROC: 10D00Z1 Extraction of Products of Conception, Low, Open Approach (ICD-10-PCS; principal; 2021-09-08)
DX: O99.52 Diseases of the respiratory system complicating childbirth (principal); O98.32 Other infections with a predominantly sexual mode of transmission complicating childbirth; O09.513 Supervision of elderly primigravida, third trimester; Z3A.39 39 weeks gestation of pregnancy; D25.9 Leiomyoma of uterus, unspecified; Z20.822 Contact with and (suspected) exposure to COVID-19; A60.00 Herpesviral infection of urogenital system, unspecified; O34.13 Maternal care for benign tumor of corpus uteri, third trimester; O40.3XX0 Polyhydramnios, third trimester, not applicable or unspecified; Z37.0 Single live birth; J45.909 Unspecified asthma, uncomplicated; O99.214 Obesity complicating childbirth; G43.909 Migraine, unspecified, not intractable, without status migrainosus; O75.89 Other specified complications of labor and delivery
CPT/HCPCS: 36415; 59200; 85014; 85018; 85027; 86592; 86850; 86900; 86901; 93005; G0378; J3490; J7121; J1100; J1885; J2370; J2405; J2590; J2765; J7120; U0003